=== PATIENT | male | born 1955 | race Caucasian/White ===

== ENCOUNTER 2019-11-27 08:34 | Outpatient (CLI) | payer MEDICARE, SELFPAY ==
--- NOTE | 2019-12-10 15:59 | SLEEP_ITS ---
Basic Nocturnal Polysomnogram DATE OF STUDY: 11/27/2019 ORDERING PHYSICIAN: Gold Oliver DO. REASON FOR THE STUDY: Hypersomnia. HISTORY: This patient is a 64-year-old man, 73 inches tall weighing 255 pounds with a body mass index of 33.6. 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 He rarely snores. He answers in the negative to the majority of questions including having trouble breathing with the cold, waking up gasping for breath at night, witnessed breathing problems reported to him by others, sweating excessively at night, notices heart pounding or beating irregularly at night, falling asleep during the day, falling asleep involuntarily, falling asleep while driving, with physical effort. He denies loss of muscle tone with strong emotion, daytime difficulties due to excessive sleepiness, feeling paralyzed on waking or falling asleep, and he does not have vivid dreamlike scenes upon awakening or falling asleep. He is never afraid to go to sleep. He rarely has nightmares, rarely remembers his dreams. He occasionally has racing thoughts. He denies feeling sad, depressed, or anxious. He rarely has muscular tension. He never notices parts of his body jerking. He does not kick at night. He does not have crawly achy feelings in his legs. He rarely has leg pain at night. He does not have morning jaw pain. He does not grind his teeth. He frequently is bothered by pain during the day and he occasionally is awakened by pain at night, occasionally wakes up feeling stiff in the morning with sore achy muscles, and wakes up with pain in the neck and spine. His work situation is satisfactory. He has tremors. Normal bedtime is between 9 and 10 p.m., falling asleep quickly, waking up during the night to use the bathroom. He wakes in the morning between 5 and 7 a.m. The weekend schedule is the same. He does take naps. A short nap is refreshing. He feels good in the morning, but indicates he has a bit drowsy for 3 hours perhaps. He drinks caffeine. Occasional alcohol. No mention of tobacco. MEDICAL COMORBIDITIES: Hypertension. He takes Neurontin and there is no clear reason why. The patient is a former pipe smoker, quit smoking in November 2016. Medication list is not available. DESCRIPTION OF THE STUDY: On the Winton Sleepiness Scale, the score is 4. This was conducted as a basic nocturnal polysomnogram using the [employer]itt[employer]ch multiple channel system including EOG, EEG, submental EMG, EKG, nasal and oral airflow using thermistors and nasal pressure sensors, chest and abdominal belts, body position data, and pulse oximetry. The study was scored using [facility] guidelines. Duration of the study was 471.5 minutes. Sleep time 264.5 minutes. Sleep efficiency was low at 56.1%. Sleep latency 24.3 minutes. REM latency extremely prolonged, 211 minutes. He had 27 waking awakenings and spent 40.9% of this test awake after sleep onset. This was a significant amount of sleep, 182.7 minutes. Sleep architecture showed 8.2% stage 1 sleep, 36.2% stage 2 sleep, no stage 3 sleep, and 14.8% stage REM. Sleep was fragmented and he had several episodes of wakefulness throughout the study. He had 2 REM cycles. His apnea-hypopnea index was 15. The obstructive index is 14.3. The patient had no supine REM unfortunately. He had 32 obstructive hypopneas in non-supine REM for an index of 29.1. He had 3 mixed apneas and 32 obstructive hypopneas in non-supine non-REM for an index of 10.6. The non-supine index was 15. The lowest desaturation is 81%. The mean saturation is 87.4%. The patient spent 235 minutes below 88% saturation, which was 49.8% of the study. He had 69 desaturations of 4% or greater for an index of 8.8. REM desaturation index was 30.9.
== END 2019-11-27 08:35 | disposition home or self-care (01) ==
LOC: ANHCSM 08:35
PROVIDERS: PCP Internal Medicine; Visit Provider Internal Medicine
DX: G47.10 Hypersomnia, unspecified (principal); G47.33 Obstructive sleep apnea (adult) (pediatric); I10 Essential (primary) hypertension; Z68.33 Body mass index [BMI] 33.0-33.9, adult
CPT/HCPCS: 95810

== ENCOUNTER 2021-10-12 10:05 | Emergency (ER) | payer MEDICARE, SELFPAY ==
--- NOTE | ~2021-10-12 | XR_ITS ---
EXAMINATION: XR chest 2V DATE: 10/12/2021 11:07 INDICATION: Cough and chest congestion TECHNIQUE: PA and lateral views of the chest are obtained. COMPARISON: 12/16/2015 FINDINGS: There is chronic bibasilar atelectasis. No acute airspace opacities are identified. There i s no pleural effusion or pneumothorax. The cardiomediastinal silhouette is normal. There is mild thor acic spondylosis. IMPRESSION: 1. No acute cardiopulmonary abnormality. Reviewed, dictated and finalized at location B. ALLER
[2021-10-12 10:47] VITALS: BP 123/82; PULSE 95; RESP 18; TEMP 36.8; O2SAT 93
--- NOTE | 2021-10-12 11:01 | ED.GENADULT ---
HPI - General Adult General Chief complaint: Upper Respiratory Infection Stated complaint: flu like symptoms Source: patient Mode of arrival: ambulatory Limitations: no limitations History of Present Illness HPI narrative: Patient is a 66-year-old male who presents to the urgent care via POV for evaluation of COVID-like symptoms that have been present for 2 days. Additionally, he reports chills, decreased appetite, lightheadedness, nonproductive, wet cough, and diarrhea. He reports 6 episodes of brown watery diarrhea since onset. Coricidin HBP provides some relief. Nothing worsens symptoms. Denies known exposure to sick contacts. Patient reports he is fully vaccinated against Covid and influenza. He also reports he is received Covid booster. Related Data Allergies Allergy/AdvReac Type Severity Reaction Status Date / Time triprolidine Allergy Severe RASH Verified 10/12/21 11:00 Review of Systems Review of Systems: Denies fever, sweats, poor p.o. intake, LOC, myalgias headaches, rhinorrhea, ear pain, sinus problems, sore throat, drooling, difficulty swallowing, abdominal pain, nausea, vomiting, diarrhea, shortness of breath, wheezing, cyanosis, chest pain, heart palpitations PMFSH Past Medical History Medical History (Updated 10/12/21 @ 11:15 by DONTE Bynum, LM) Benign essential hypertension Chronic pain of both knees Obesity Other and unspecified hyperlipidemia Primary osteoarthritis involving multiple joints Seizures Family History Family History Mother Family history of diabetes mellitus in first degree relative Social History Social History Smoking status: Former smoker Tobacco type: pipe Second hand tobacco smoke exposure: No Smoking end date: 11/10/16 Alcohol intake: never Comments I have reviewed and agree with the patient's past medical, surgical, social, and family hx as documented by the RN. There is no relevant family history pertinent to the presenting complaint. Exam Narrative: GENERAL: Well-appearing, well-nourished, and in no acute distress. HEAD: Normocephalic, atraumatic. No sinus tenderness or facial swelling appreciated. EYES: PERRLA and EOMI. No evidence of erythema, swelling, or drainage. ENT: Bilateral external ears and ear canals normal. Bilateral TMs are normal.No TM perforation. Nares clear, no rhinorrhea or epistaxis. Bilateral turbinates without erythema/ swelling. Mucous membranes moist and pink. Uvula is midline without erythema and swelling. No evidence of petechial rash, cobblestoning, lesions, ulcers, erythema, swelling, exudates, peritonsillar abscess, tenting, or drooling. Breath odor and voice normal. NECK: Supple. No Lymphadenopathy or nuchal rigidity appreciated. CHEST: Bilateral lung saunders are clear to auscultation. No respiratory distress. Moderate wet cough appreciated upon examination. No pleuritic cp upon examination. HEART: Regular rate and rhythm. No murmur, gallop, or rub heard. EXTREMITIES: Normal range of motion. No edema. SKIN: Warm, dry, no rash. NEURO: No focal deficits. Alert and oriented x3. Course Course Level of Care: Express Care Visit Vital Signs Vital signs: Vital Signs Temperature 98.2 F 10/12/21 10:47 Pulse Rate 93 10/12/21 10:47 Respiratory Rate 18 10/12/21 10:47 Blood Pressure 123/82 10/12/21 10:47 Pulse Oximetry 93 10/12/21 10:47 Temperature 98.2 F 10/12/21 10:47 Pulse Rate 93 10/12/21 10:47 Respiratory Rate 18 10/12/21 10:47 Blood Pressure 123/82 10/12/21 10:47 Pulse Oximetry 93 10/12/21 10:47 Medical Decision Making Differential Diagnosis Differential Diagnosis: Allergic rhinitis, ABRS, acute viral sinusitis, strep pharyngitis, nasopharyngitis, bronchitis, pneumonia, AOM, otitis externa, viral URI, influenza, covid-19 Medical Records Medical records
== END 2021-10-12 11:41 | disposition home or self-care (01) ==
PROVIDERS: Emergency Provider Nurse Practitioner Family; PCP Internal Medicine
DX: U07.1 COVID-19 (principal); Z87.891 Personal history of nicotine dependence; I10 Essential (primary) hypertension; E78.5 Hyperlipidemia, unspecified; M19.90 Unspecified osteoarthritis, unspecified site; G40.909 Epilepsy, unspecified, not intractable, without status epilepticus
CPT/HCPCS: 71046; 87426; 99213; C9803; G0463

== ENCOUNTER → 2021-10-24 08:00 | Outpatient (CLI) | payer MEDICARE, SELFPAY ==
[2021-10-24 16:46] LABS: SARS-CoV-2 RNA PCR Positive
== END ==
PROVIDERS: PCP Internal Medicine; Visit Provider Internal Medicine
DX: U07.1 COVID-19 (principal)
CPT/HCPCS: C9803; U0003; U0005

== ENCOUNTER → 2021-10-30 04:22 | Outpatient (CLI) | payer MEDICARE, SELFPAY ==
[2021-10-30 12:06] LABS: Influenza A QL RT-PCR Negative (Negative); Influenza B QL RT-PCR Negative (Negative); SARS-CoV-2 RNA PCR Negative
== END ==
PROVIDERS: PCP Internal Medicine; Visit Provider Internal Medicine
DX: R09.89 Other specified symptoms and signs involving the circulatory and respiratory systems (principal); Z20.822 Contact with and (suspected) exposure to COVID-19
CPT/HCPCS: 87502; C9803; U0003; U0005

== ENCOUNTER 2022-09-01 13:38 | Emergency (ER) | payer MEDICARE, SELFPAY ==
[2022-09-01 14:05] VITALS: BP 140/69; PULSE 98; RESP 20; TEMP 37.6; O2SAT 95
--- NOTE | 2022-09-01 14:15 | ED.URI ---
HPI - URI/Sore Throat General Chief Complaint: Upper Respiratory Infection Stated Complaint: flu like symptoms Time Seen by Provider: 09/01/22 14:16 Source: patient Mode of arrival: ambulatory Limitations: no limitations History of Present Illness HPI Narrative: 67-year-old male presents with complaint of cough, chest congestion, fatigue and body aches for 2 days. States same symptoms as the last time he had COVID. Did a home COVID test this morning that was negative. Denies chest pain and shortness of breath. Reports that he has his COVID vaccine and boosters. Afebrile. All systems reviewed and negative except as noted above. Related Data Allergies Allergy/AdvReac Type Severity Reaction Status Date / Time triprolidine AdvReac Mild RASH Verified 09/01/22 13:58 Review of Systems Review of Systems: CONSTITUTIONAL: Denies fever, chills, or sweats. Reports fatigue. EYES: Denies visual changes, redness, or discharge. ENT: Denies rhinorrhea, congestion, sore throat, or otalgia. CARDIOVASCULAR: Denies chest pain, palpitations, or edema. RESPIRATORY: reports cough. Denies dyspnea. GASTROINTESTINAL: Denies abdominal pain, nausea, vomiting, or diarrhea. GENITOURINARY: Denies dysuria or hematuria. SKIN: Denies rash or itching. MUSCULOSKELETAL: Denies back pain, joint pain . Reports myalgia. NEUROLOGIC: Denies headache, numbness, or weakness. PSYCHIATRIC: Denies anxiety or depression. All other systems reviewed are negative, except as documented in HPI. [facility] Past Medical History Medical History Benign essential hypertension Chronic pain of both knees Obesity Other and unspecified hyperlipidemia Primary osteoarthritis involving multiple joints Seizures Family History Family History Mother Family history of diabetes mellitus in first degree relative Social History Social History Smoking status: Former smoker Tobacco type: pipe Second hand tobacco smoke exposure: No Smoking end date: 11/10/16 Alcohol intake: never Substance use: never Substance use type: does not use Comments At time of signature, agree with nursing past medical, surgical, social and family history. There is no relevant family history pertinent to the presenting complaint. Exam Narrative: GENERAL: This is a well-nourished, well-developed patient, in no apparent distress. HEAD: normocephalic, atraumatic. EYES: PERRL. Sclera clear/white. Vision is grossly intact. EARS: External ears normal, auditory canals clear and without drainage, TMs normal without perforation. Hearing grossly intact. NOSE: External nose normal with no obvious nasal discharge, nares without redness, no rhinorrhea. THROAT: Mucous membranes moist, posterior pharynx clear. NECK: Neck supple, non-tender without lymphadenopathy, masses or thyromegaly. CARDIOVASCULAR: Regular rate and rhythm without murmurs, gallops, or rubs. RESPIRATORY: Clear to auscultation. Breath sounds equal bilaterally. No wheezes, rales, or rhonchi. SKIN: warm, Dry, intact with no suspicious lesions or rash, good texture and turgor. NEURO: awake, alert, and oriented to person, place and time. There were no obvious focal neurologic abnormalities. EXTREMITIES: No joint tenderness, effusion, or edema noted. Course Course Level of Care: Express Care Visit Vital Signs Vital signs: Vital Signs Temperature 37.6 C H 09/01/22 14:05 Pulse Rate 98 09/01/22 14:05 Respiratory Rate 20 09/01/22 14:05 Blood Pressure 140/69 09/01/22 14:05 Pulse Oximetry 95 09/01/22 14:05 Oxygen Delivery Room Air 09/01/22 14:05 Temperature 37.6 C H 09/01/22 14:05 Pulse Rate 98 09/01/22 14:05 Respiratory Rate 20 09/01/22 14:05 Blood Pressure 140/69 09/01/22 14:05 Pulse Oximetry 95 09/01/22 14:05 Oxygen Delivery Room
== END 2022-09-01 14:25 | disposition home or self-care (01) ==
PROVIDERS: Emergency Provider Nurse Practitioner Family; PCP Internal Medicine
DX: U07.1 COVID-19 (principal); I10 Essential (primary) hypertension; Z87.891 Personal history of nicotine dependence
CPT/HCPCS: 87426; 99213; C9803; G0463

== ENCOUNTER 2022-09-24 10:07 | Emergency (ER) | payer MEDICARE, SELFPAY ==
--- NOTE | ~2022-09-24 | XR_ITS ---
EXAMINATION: XR knee LT min 4V DATE: 09/24/2022 11:13 INDICATION: Lateral left knee pain post fall TECHNIQUE: Anteroposterior, oblique and crosstable lateral views of the left knee were obtained COMPARISON: Radiographs dated 04/30/[address] dated 06/13/2015 FINDINGS: Left total knee arthroplasty with patellar resurfacing. There is unchanged subtle degree medial angul ation of the tibia with respect to the axis of the tibial component. Also unchanged is minimal lucenc y at the component cement interface at the lateral side of the tibial component. No fracture or perip rosthetic lucency to suggest loosening. Minimal left knee joint effusion at the suprapatellar pouch. Chronic fatty atrophy of the medial head of the gastrocnemius. IMPRESSION: 1. Left total knee arthroplasty with minimal joint effusion and no acute osseous abnormality. Reviewed, dictated and finalized at location A. RICT DIRECTOR IMPRESSION: 1. Left total knee arthroplasty with minimal joint effusion and no acute osseou s abnormality.
[2022-09-24 10:38] VITALS: BP 120/73; PULSE 87; RESP 20; TEMP 36.4; O2SAT 97
--- NOTE | 2022-09-24 10:39 | ED.LOWEXIN ---
HPI - Extremity Injury (Lower) General Chief Complaint: Extremity Problem,Nontraumatic Stated Complaint: lt knee injury Time Seen by Provider: 09/24/22 10:45 Source: patient Mode of arrival: ambulatory Limitations: no limitations History of Present Illness HPI Narrative: Mr. Lawler is a 67-year-old male patient presenting to the clinic today with complaints of left lateral knee pain that occurred last night when he was getting undressed. He reports that when he was taking his pants off he felt a pop in his knee and had pain over the left lateral knee. He thinks he may have torn his MCL again. States he has had a full arthroplasty and a partial arthroplasty of the left knee in the past. Has lateral knee pain with walking, bending, and extension of his leg. Related Data Home Medications Medication Instructions Recorded Confirmed quinapril 20 mg tablet 20 mg PO DAILY 09/24/22 09/24/22 Allergies Allergy/AdvReac Type Severity Reaction Status Date / Time triprolidine AdvReac Mild RASH Verified 09/24/22 10:41 Review of Systems Review of Systems: Pertinent positives per HPI. Patient denies any fever, chills, rash, headache, visual changes, dizziness, cough, runny nose, sore throat, shortness of breath, chest pain, palpitations, nausea, vomiting, diarrhea, constipation, abdominal pain, or any urinary issues. PMFSH Past Medical History Medical History Benign essential hypertension Brain abscess Chronic pain of both knees Obesity Other and unspecified hyperlipidemia Primary osteoarthritis involving multiple joints Seizures Family History Family History Mother Family history of diabetes mellitus in first degree relative Social History Social History Smoking status: Former smoker Tobacco type: pipe Second hand tobacco smoke exposure: No Smoking end date: 11/10/16 Alcohol intake: never Substance use: never Substance use type: does not use Comments At the time of my signature, I reviewed and agree with the nursing past medical, surgical, social, and family history. There is no relevant family history pertinent to the patient complaint. Exam Narrative: General: Well-developed, well nourished, in no apparent distress Head: Normocephalic, atraumatic. Cardio: Regular rate and rhythm, s1 and s2 normal, no murmur appreciated. Resp: Clear to auscultation bilaterally, no rhonchi, rales, wheezing or rubs. Musculoskeletal: No deformity, vertical healed scarring over the anterior knee, mild swelling when compared to the right knee, tenderness to palpation over the LCL, mild pain with valgus varus testing over the LCL without laxity of the ligament, pain over the LCL with flexion and extension of the left leg, negative anterior and posterior drawer test, grossly normal range of motion, muscle strength strong and equal, peripheral pulse strong, no cyanosis, using crutches to walk Course Course Emergency Course: Portions of this record may have been created with voice recognition software. Level of Care: Express Care Visit Vital Signs Vital signs: Vital Signs Temperature 36.4 C L 09/24/22 10:38 Pulse Rate 87 09/24/22 10:38 Respiratory Rate 20 09/24/22 10:38 Blood Pressure 120/73 09/24/22 10:38 Pulse Oximetry 97 09/24/22 10:38 Oxygen Delivery Room Air 09/24/22 10:38 Temperature 36.4 C L 09/24/22 10:38 Pulse Rate 87 09/24/22 10:38 Respiratory Rate 20 09/24/22 10:38 Blood Pressure 120/73 09/24/22 10:38 Pulse Oximetry 97 09/24/22 10:38 Oxygen Delivery Room Air 09/24/22 10:38 Vital signs reviewed MDM - Extremity Injury (Lower) MDM Narrative Medical decision making narrative: At the time of visit patient is resting comfortably on exam table. X-ray of the left knee was obtained and shows no fr
== END 2022-09-24 11:55 | disposition home or self-care (01) ==
PROVIDERS: Emergency Provider Nurse Practitioner Family; PCP Internal Medicine
DX: M25.462 Effusion, left knee (principal); S83.422A Sprain of lateral collateral ligament of left knee, initial encounter; X58.XXXA Exposure to other specified factors, initial encounter; I10 Essential (primary) hypertension; E66.9 Obesity, unspecified; Z68.29 Body mass index [BMI] 29.0-29.9, adult; E78.49 Other hyperlipidemia; M19.90 Unspecified osteoarthritis, unspecified site; Z87.891 Personal history of nicotine dependence
CPT/HCPCS: 73564; 99213; G0463

== ENCOUNTER 2025-01-21 08:59 | Outpatient (CLI) | payer MEDICARE, SELFPAY ==
--- NOTE | ~2025-01-21 | XR_ITS ---
XR knee LT 3V Ordering provider: Gold Oliver DO History: . M25.561 - Pain in right knee . Comparison: September 24, 2022 FINDINGS: BONES: No acute fracture or dislocation. JOINT SPACES: Total knee arthroplasty. SOFT TISSUES: Normal. IMPRESSION: No acute osseous abnormality left knee. Total knee arthroplasty. Reviewed, dictated and finalized at location A.
--- NOTE | ~2025-01-21 | XR_ITS ---
Left Shoulder Technique: AP and scapular Y views were obtained. Clinical History: Pain Findings: No fracture or dislocation is seen. Osseous alignment is anatomic. The glenohumeral joint d emonstrates moderate to advanced degenerative change. Probable prior distal clavicular resection. Sof t tissues are unremarkable. Impression: Moderate to advanced degenerative change of the glenohumeral joint. Probable prior distal clavicular resection. Reviewed, dictated and finalized at location M. Impression: Moderate to advanced degenerative change of the glenohumeral joint. Probable prior distal clavicular resection.
--- NOTE | ~2025-01-21 | XR_ITS ---
XR knee RT 3V Ordering provider: Gold Oliver DO History: . M25.561 - Pain in right knee, NKI . Comparison: April 30, 2015 FINDINGS: BONES: No acute fracture or dislocation. JOINT SPACES: Slight narrowing of the medial compartment. Chondrocalcinosis. SOFT TISSUES: Normal. IMPRESSION: No acute osseous abnormality right knee. Mild osteoarthritic changes. Chondrocalcinosis. Reviewed, dictated and finalized at location A.
--- OUTSIDE RECORDS SUMMARY | 2025-01-21 09:08 | XMS_ITS | Clinical Summary ---
Author Organization [facility] Address [address] [place] [id number] Care Team Providers Care Nude Model Name Role Phone Unavailable Primary Care Provider Unavailabl e Social History Tobacco Use Types Packs/Day Years Used Date Smoking Tobacco: Never Assessed Sex and Gender Information Value Date Recorded Sex Assigned at Not on file Legal Sex Male 4:31 PM CDT Gender Identity Not on file Sexual Orientation Not on file Plan of Treatment Health Maintenance Due Date Last Done Comments Colorectal Cancer Screening Colonoscopy (10 Years) 1953 Hepatitis C 1971 DTaP, Tdap and Td Vaccines ( 1 - Tdap) 1972 Pneumococcal Vaccine: 50+ Ye ars (1 of 1 - PCV) 2003 Zoster Vaccines (1 of 2) 2003 COVID-19 Vaccine ( - 2023-2 5 season) 2024 RSV Immunization or 60+ Years (1 - 1-dose 75+ series) 2028 Meningococcal B Vaccine Aged Out No l onger eligible based on patient's age to complete this topic Meningococcal Vaccine Aged Out No guanako kimberley eligible based on patient's age to complete this topic RSV Immunizations Under 20 Months Aged Out No longer eligible based on patient's age to complete this topic
--- OUTSIDE RECORDS SUMMARY | 2025-01-21 09:08 | XMS_ITS | Clinical Summary ---
Author Organization [facility] Address [address] [place] [address] Care Team Providers Care Magisterial District Judge Name Role Phone Kenrick Pinto MD Primary Care Provider [phone] Source Comments [facility] Affiliates and Associated Physician Practices is amultiple site organization consisting of ambulatory clinics and hospital sitesin [place], [place], [place] and [place]. This disclosure is being madepursuant to the Care Everywhere program and may not contain all information available regarding this patient. Last updated [email or web address] [email or web address] Social History Tobacco Use Types Packs/Day Years Used Date Smoking Tobacco: Never Assessed Sex and Gender Information Value Date Recorded Sex Assigned at Not on file Legal Sex Male 9:28 AM CHANGE MANAGEMENT CONSULTANT Gender Identity Not on file Sexual Orientation Not on file Last Filed Vital Signs Vital Sign Reading Time Taken Comments Blood Pressure - - Pulse - - Temperature - - Respiratory Rate - - Oxygen Saturation - - Inhaled Oxygen Concentration - - Weight 109.3 kg (241 lb) 10/19/2017 9:40 AM CHANGE MANAGEMENT CONSULTANT Height 188 cm (6' 2 ) 10/19/2017 9:40 AM CHANGE MANAGEMENT CONSULTANT Body Mass Index 30.94 10/19/2017 9:40 AM CHANGE MANAGEMENT CONSULTANT Plan of Treatment Health Maintenance Due Date Last Done Comments COLOGUARD (AGES 45-75) - COL ON CA SCREENING 1955 COLON MONITORING 1953 COLONOSCOPY - COLON CA SCREENING 1953 CT COLONOGRAPHY - COLON CA SCREENING 1953 Colorectal Cancer Screening 1953 FIT - COLON CA SCREENING 1953 FLEX SIG - COLON CA SCREENING 1953 LIPID TESTING 1953 HEPATITIS C SCREENING 02/27/1971 DTAP/TDAP/TD VACCINES (1 - Tdap) 1972 PNEUMOCOCCAL VACCINE 50+ (1 of 1 - PCV) 2003 ZOSTER VACCINE (1 of 2) 2003 COVID-19 VACCINE (1 - 2023-2 5 season) 2024 DEPRESSION SCREENING 09/12/2024 INFLUENZA VACCINE (Season Ended) 2025 Respiratory Syncytial Virus (RSV) Vaccine Pt: or over 60 yrs (1 - 1-dose 75+ series) 2028 HEPATITIS B VACCINE Aged Out No longe r eligible based on patient's age to complete this topic HIB VACCINE Aged Out No longer eligi ble based on patient's age to complete this topic HPV VACCINE Aged Out No longer eligi ble based on patient's age to complete this topic MENINGOCOCCAL (Group B) VACC INE SHARED DECISION-MAKING Aged Out No longer eligibl e based on patient's age to complete this topic MENINGOCOCCAL GROUPS A/C/Y/W VACCINE Aged Out No longer eligible b ased on patient's age to complete this topic Insurance [place] [id number] Care Teams Magisterial District Judge Relationship Specialty [place] [address] [place] [id number] PCP - General Internal Medicine 09/30/17
--- OUTSIDE RECORDS SUMMARY | 2025-01-21 09:08 | XMS_ITS | Clinical Summary ---
Author Organization [facility] Address [address] [place] [address] Phone Care Team Providers Care Long Winder Tender Name Role Phone Kenrick Pinto MD Primary Care Provider + Allergies No known active allergies Medications quinapril (ACCUPRIL) 20 mg tablet Take 20 mg by mouth Daily LATE . Active atorvastatin (LIPITOR) 80 mg tablet Take 80 mg by mouth Daily LATE. Active gabapentin (NEURONTIN) 300 mg capsule Take 300 mg by mouth daily at bedtime . Active phenytoin (DILANTIN) 300 mg Capsule Take 700 mg by mouth daily at bedtime . Active oxyCODONE-aceta minophen (PERCOCET) 5-325 mg tablet Take 1 Tablet by mouth every 4 hours as needed for Pain, Moderate. Max Daily Amount: 6 Tablet 50 Tablet 0 01/26/2016 Active Social History Tobacco Use Types Packs/Day Years Used Date Smoking Tobacco: Every Day Pipe Smokeless Tobacco: Never Alcohol Use Standard Drinks/Week Comments Yes 0 (1 standard drink = 0.6 oz pur e alcohol) rare Sex and Gender Information Value Date Recorded Sex Assigned at Not on file Legal Sex Male 4:43 PM CDT Gender Identity Not on file Sexual Orientation Not on file Last Filed Vital Signs Vital Sign Reading Time Taken Comments Blood Pressure 129/62 01/26/2016 5:10 AM CDT Pulse 89 01/26/2016 5:10 AM CDT Temperature 36.8 C (98.2 F) 01/26/2016 5:10 AM CDT Respiratory Rate 18 01/26/2016 5:10 AM CDT Oxygen Saturation 95% 01/26/2016 5:10 AM CDT Inhaled Oxygen Concentration - - Weight 105.2 kg (232 lb) 01/23/2016 1:02 PM CDT Height 188 cm (6' 2 ) 01/12/2016 9:03 AM CDT Body Mass Index 29.79 01/12/2016 9:03 AM CDT Plan of Treatment Health Maintenance Due Date Last Done Comments DTAP/TDAP/TD VACCINES (1 - Tdap) 1972 PNEUMOCOCCAL VACCINE 50+ YEARS (1 of 2 - PCV) 03/03/19 72 COLORECTAL SCREENING 1998 Colorectal Cancer Screening 1998 FIT-DNA Q 3 years 1998 FIT/FOBT Q 1 year 1998 Flex Sig/CT Colonography Q 5 years 1998 ZOSTER VACCINE (1 of 2) 2003 INFLUENZA VACCINE (#1) 2024 RSV VACCINE (60+ or ) (1 - 1-dose 75+ series) 2028 Medical Devices Implanted Type Area Ict Help Desk Technician Device Identifier Shelf Expiration Date Model / Serial / Lot Insert Tib Sigma Rps [id number] - [id number] Implanted:Qty: 1 on 01/23/2016 by Marc Dudley MD at [facility] Knee Left: Knee [employer] 07/12/2018 [id number] / / [id number] Description:This Depuy krista ion knee components was processed on requisition,[id number]. Left Knee Mesh Hernia Explanted Type Area Ict Help Desk Technician Device Identifier Shelf Expiration Date Model / Serial / Lot Poly Insert Explanted:Qty: 1 on 01/23/2016 by Marc Dudley MD at [facility] Left: Knee [employer] Insurance [facility] [id number] Advance Directives For more information, please contact: [phone] * Full Code (Latest Code Status on File) Date Activated Date Inactivated Comments 01/23/2016 6:23 PM 01/26/2016 4:44 PM * Full Code Date Activated Date Inactivated Comments 01/23/2016 1:03 PM 01/23/2016 6:23 PM Care Teams Long Winder Tender Relationship Specialty Start Date End Date Kenrick Pinto MD [address] [place] [id number] PCP - General Internal Medicine 01/12/16
--- OUTSIDE RECORDS SUMMARY | 2025-01-21 09:09 | XMS_ITS | Clinical Summary ---
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 Gender Identity Not on file Sexual Orientation Not on file Plan of Treatment Health Maintenance Due Date Last Done Comments Hepatitis C Virus (HCV) Screening 1955 TdaP Immunization 1955 Cologuard 2003 Immunochemical Fecal Occult Blood 2003 Pneumococcal Immunization (5 0+ years) (1 of 1 - PCV) 2003 Zoster Immunization (1 of 2) 2003 Colonoscopy 11/06/2021 11/06/2018 Colorectal Cancer Screening 11/06/2021 Influenza Immunization (#1) 2024 SARS-COV-2 Immunization ( season) 2024 Respiratory Syncytial Virus (RSV) Immunization (Adult) (1 - 1-dose 75+ series) 2028 11/06/2018 Hepatitis B Immunization Aged Out No longer eligible based on patient's age to complete this topic Meningococcal Immunization (ACWY) Aged Out No longer eligible based on patient's age to complete this topic Rotavirus Immunization Aged Out No lo nger eligible based on patient's age to complete this topic Procedures Procedure Name Priority Date/Time Associated Diagnosis Comments COLONOSCOPY Routine 11/06/2018 from Last 3 Months or Most Recently Relevant to Health Maintenance Results * COLONOSCOPY (11/06/2018) Savage Shell DO PROCEDURE/MINOR SURGICAL ORDERA BLES Final Result from Last 3 Months or Most Recently Relevant to Health Maintenance Insurance on file Care Teams Dural Mechanic Relationship Specialty Start Date End Date Kenrick Pinto MD PCP - General Internal Medicine 11/08/18
== END 2025-01-21 09:00 | disposition home or self-care (01) ==
PROVIDERS: PCP Internal Medicine; Visit Provider Internal Medicine
DX: M19.012 Primary osteoarthritis, left shoulder (principal); M17.11 Unilateral primary osteoarthritis, right knee; M11.261 Other chondrocalcinosis, right knee; Z96.652 Presence of left artificial knee joint
CPT/HCPCS: 73030; 73562

== ENCOUNTER 2025-02-06 09:50 | Outpatient (CLI) | payer MEDICARE, SELFPAY ==
--- NOTE | ~2025-02-06 | XR_ITS ---
Left Hand Technique: PA, oblique, and lateral views were obtained. Clinical History: Pain Findings: No acute fracture or dislocation is seen. Osseous alignment is anatomic. There is severe de generative change of the first CMC joint. Soft tissues are unremarkable. Impression: Severe degenerative change of the first CMC joint. Reviewed, dictated and finalized at [facility]. Impression: Severe degenerative change of the first CMC joint.
--- OUTSIDE RECORDS SUMMARY | 2025-02-06 09:54 | XMS_ITS | Clinical Summary ---
Author Organization [facility] Address [address] [place] [address] Care Team Providers Care Wedger Name Role Phone Kenrick Pinto MD Primary Care Provider [phone] Source Comments [facility] Affiliates and Associated Physician Practices is amultiple site organization consisting of ambulatory clinics and hospital sitesin [place], [place], [place] and [place]. This disclosure is being madepursuant to the Care Everywhere program and may not contain all information available regarding this patient. 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 Gender Identity Not on file Sexual Orientation Not on file Last Filed Vital Signs Vital Sign Reading Time Taken Comments Blood Pressure - - Pulse - - Temperature - - Respiratory Rate - - Oxygen Saturation - - Inhaled Oxygen Concentration - - Weight 109.3 kg (241 lb) 10/19/2017 9:40 AM FORMING PROCESS WORKER Height 188 cm (6' 2) 10/19/2017 9:40 AM FORMING PROCESS WORKER Body Mass Index 30.94 10/19/2017 9:40 AM FORMING PROCESS WORKER Plan of Treatment Health Maintenance Due Date [...] patient's age to complete this topic Insurance [place] [id number] Care Teams Wedger Relationship Specialty [place] [address] [place] [phone] PCP - General Internal Medicine 09/30/17
--- OUTSIDE RECORDS SUMMARY | 2025-02-06 09:54 | XMS_ITS | Continuity of Care Document ---
Author Organization [facility] Address [address] [place] [address] Phone Care Team Providers Care Property Condition Assessor Name Role Phone Unavailable Unavailable Unavailable Procedures Procedure Date Office/outpatient visit[place] [place] Postop followup visit Postop followup visit Postop followup visit Arthroscopic Rotator Cuff Repair 2007 Arthscpy shldr decompression Office[facility]patient visit,[facility] [place] X-ray exam of shoulder, complete 2007 Advance Directives Directive Yes / No Effective Date File Name No Information Encounters Encounter Description Practice Location Reason(s) For Visit Diagnoses Date Provider Providers Copied on Encounter Office/outpat ient visit,[place], [facility], [address], [place], [place], [address], [place] tel:[phone] No Information No Information Referring Provider: Man Bailey, [address] [place] [address], [address]. tel:[phone] [facility], [address], [place], [place], [address], [place] tel:[phone] [employer] No Information No Information Referring Provider: Man Bailey, [facility] [facility] [address], [place], [address]. tel:[phone] [facility], [address], [place], [place], [address], tel:[phone] No Information 8 No Information Referring Provider: Man Bailey, [address] [facility] [address], [place], [address]. tel:[phone] [facility], [address] [facility] [address], [place], [place], [address], tel:[phone] [facility] No Information 8 No Information Referring Provider: Man Bailey, [address] [facility] [address], [place], [address]. tel:[phone] [facility], [address] [facility] [address], [place], [place], [address], tel:[phone] [facility] No Information 8 No Information Referring Provider: Man Bailey, [address] [facility] [address], [place], [address]. tel:[phone] Office/outpat ient visit,[facility], [address] [facility] [address], [place], [place], [address], tel:[phone] [facility] No Information 8 No Information Referring Provider: Angel Rucker, [address], [place], [address]. tel:[phone] Family History Family Member Type Diagnosis Age At Onset No Information Payers Payer name Insurance type Covered alliance party ID Authoriza tinancy(s) [facility] [id number] Social History Type Description Quantity Date Captured Comments Sex Male Smoking Status No Information Chief Complaint And Reason For Visit No Information Reason For Referral Reason For Referral No Information History Of Present Illness Encounter Date Complaint History Of Prese nt Illness No Information Functional Status Date Functional Assessmen t No Information Instructions Date Instruction Additional Infor mation No Information Assessments Type Assessment Date No Information Patient Care Teams Name Effective Dates (start - stop) Status Members No Information
--- OUTSIDE RECORDS SUMMARY | 2025-02-06 09:54 | XMS_ITS | Clinical Summary ---
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
--- OUTSIDE RECORDS SUMMARY | 2025-02-06 09:54 | XMS_ITS | Continuity of Care Document ---
Author Organization [facility] Address [address] [place] [address] Phone Care Team Providers Care College Director Name Role Phone Marc Dudley MD Unavailable Unavailable Allergies, Adverse Reactions, Alerts Substance Reaction Status Criticality Sulfa (Sulfonamide Antibiotics) Unknown Active No Information Medications Medication Instructions Dosage Effective Dates (start - stop) Status Comments NEURONTIN (unknown strength) Not Available - Active LIPITOR (unknown strength) Not Available - Active VICODIN (unknown strength) Not Available - Active ALEVE (unknown strength) Not Available - Active ACCUPRIL (unknown strength) Not Available - Active DILANTIN (unknown strength) Not Available - Active Procedures Procedure Date OFFICE/OUTPATIENT VISIT EST POSTOP FOLLOW-UP VISIT OFFICE/OUTPATIENT VISIT EST OFFICE/OUTPATIENT VISIT EST OFFICE/OUTPATIENT VISIT EST POSTOP FOLLOW-UP VISIT OFFICE/OUTPATIENT VISIT EST POSTOP FOLLOW-UP VISIT OFFICE/OUTPATIENT VISIT EST OFFICE/OUTPATIENT VISIT EST POSTOP FOLLOW-UP VISIT POSTOP FOLLOW-UP VISIT OFFICE/OUTPATIENT VISIT EST OFFICE/OUTPATIENT VISIT EST POSTOP FOLLOW-UP VISIT POSTOP FOLLOW-UP VISIT OFFICE/OUTPATIENT VISIT EST OFFICE/OUTPATIENT VISIT EST OFFICE/OUTPATIENT VISIT NEW Advance Directives Directive Yes / No Effective Date File Name No Information Encounters Encounter Description Practice Location Reason(s) For Visit Diagnoses Date Provider Providers Copied on Encounter [facility], [address] [address], [place], [address], [place] tel:[phone] [facility] No Information 8 Octavia Tran. [address] [place], [place], [address]. tel:[phone] OFFICE/OUTPA TIENT VISIT EST [facility], [address] [address], [place], [address], [place] tel:[phone] [facility] Primary osteoarthriti s of right kneeInstabili ty of left knee joint 7 Octavia Tran. [address] [place], [place], [address]. tel:[phone] [facility], [address] [place] [address], [address], [place] tel:[phone] [facility] Body mass index (BMI) 32.0-32.9, adultPrimary osteoarthriti s of right knee 7 Danette Gould. [address] [address], [place], [place], [address]. tel:[phone] OFFICE/OUTPA TIENT VISIT EST [facility], [address] [address], [place], [address], [place] tel:[phone] [facility] Old complex tear of medial meniscus of right kneeStatus post revision of total replacement of left knee 7 Danette Gould. [address] [facility] [address], [place], [place], [address]. tel:[phone] OFFICE/OUTPA TIENT VISIT EST [facility], [address] [address], [place], [address], [place] tel:[phone] [facility] S/P Lt shoulder scope (chief complaint) Status post arthroscopy of shoulder 6 Shana Acosta. [address], [place], [place], [address]. tel:[phone] OFFICE/OUTPA TIENT VISIT EST [facility], [address] [facility] [address], [place], [address], [place] tel:[phone] [facility] Old complex tear of medial meniscus of right knee 6 Octavia Tran. [address] [place], [place], [address]. tel:[phone] [facility], [address] [facility] [address], [place], [address], [place] tel:[phone] [facility] Status post arthroscopy of shoulder 6 Shana Acosta. [address], [place], [place], [address]. tel:[phone] OFFICE/OUTPA TIENT VISIT [facility], [address] [address], [place], [address], [place] tel:[phone] [facility] Status post revision of total replacement of left kneePrimary osteoarthriti s of right knee 6 Octavia Tran. [address] [place], [place], [address]. tel:[phone] [facility], [address] [facility] [address], [place], [address], [place] tel:[phone] [facility] Status post arthroscopy of shoulder 6 Shana Acosta. [address], [place], [place], [address]. tel:[phone] OFFICE/OUTPA TIENT VISIT [facility], [address] [facility] [address], [place], [address], [place] tel:[phone] [facility] Status post revision of total replacement of left knee 6 Danette Gould. [address] [facility], [place], [place], [address]. tel:[phone] OFFICE/OUTPA TIENT VISIT [facility], [address] [facility] [address], [place], [address], [place] tel:[phone] [facility] Incomplete tear of left rotator cuffLeft shoulder tendonitis 6 Shana Acosta. [address], [place], [place], [address]. tel:[phone] [facility], [address] [facility] [address], [place], [address], [place] tel:[phone] [facility] Loosening of knee joint prosthesis, initial encounter 6 Octavia Tran. [address] [facility], [place], [place], [address]. tel:[phone] [facility], [address] [place] [address] [address], [place], [address], [place] tel:[phone] [facility] Status post revision of total replacement of left knee 6 Danette Gould. [address] [facility] [address], [place], [place], [address]. tel:[phone] [facility], [address] [place] [address] [address], [place], [address], [place] tel:[phone] [facility] Status post revision of total replacement of left knee 6 Danette Gould. [address] [facility] [address], [place], [place], [address]. tel:[phone] OFFICE/OUTPA TIENT VISIT EST [facility], [address] [place] [address] [address], [place], [address], [place] tel:[phone] [facility] Follow Up of L shldr (chief complaint) Left shoulder tendonitisInc omplete tear of left rotator cuff 6 Stefan Dangelo. [address], [place], [place], [address]. tel:[phone] [facility], [address] [place] [address] [address], [place], [address], [place] tel:[phone] [facility] Instability of internal left knee prosthesis, subsequent encounter 7 6 Octavia Tran. [address] [place], [place], [address]. tel:[phone] OFFICE/OUTPA TIENT VISIT EST [facility], [address], [address], [place] tel:[phone] [facility] Instability of internal left knee prosthesis, subsequent encounter 7 6 Octavia Tran. [address] [place], [place], [address]. tel:[phone] [facility], [address] [place] [address], [address], [place] tel:[phone] [facility] Follow Up of R knee- Orthovisc #3 (chief complaint) Primary osteoarthriti s of right knee 7 6 Ernie Montemayor. [address] [place] [address] [address] [facility], [place], [place], [address]. tel:[phone] [facility], [address] [place] [address], [address], [place] tel:[phone] [facility] Follow Up of R knee-Ortho visc #2 (chief complaint) Primary osteoarthriti s of right knee Nov- 0- 6 Ernie Montemayor. [address] [place] [address], [id number]. tel:[phone] OFFICE/OUTPA TIENT VISIT EST [facility], [address] [place] [address], [address], [place] tel:[phone] [facility] Body mass index (BMI) 32.0-32.9, adultLeft shoulder tendonitis 0 8- 6 Shakir Taylor. [address] [facility] [address] [facility], [place], [place], [address]. tel:[phone] OFFICE/OUTPA TIENT VISIT EST [facility], [address] [place] [address], [address], [place] tel:[phone] [facility] Follow Up of L knee,shldr (chief complaint) Body mass index (BMI) 32.0-32.9, adultPrimary osteoarthriti s of right knee 6 Ernie Montemayor. [address] [facility] [address], [place], [place], [address]. tel:[phone] OFFICE/OUTPA TIENT VISIT [facility], [address] [place], [place] [address], [place], [address], tel:[phone] [facility] KNEE AND SHOULDER PAIN (chief complaint) Body mass index (BMI) 32.0-32.9, adultBicipita l tendonitis of left shoulderOther infective (teno)synovit is, left knee 6 Ernie Montemayor. [address] [facility] [address], [place], [place], [address]. tel:[phone] Family History Family Member Type Diagnosis Age At Onset Sister Problem (finding) Alive and well Immunizations Vaccine Date Status Comments Pneumo (2 yrs or older)(PPV) administered Source: Other Provider Payers Payer name Insurance type Covered green party ID [place] coburnnancy(s) [employer] Medicare Complete HMO-POS [id number] Social History Type Description Quantity Date Captured Comments Alcohol Use Details Unknown Caffeine Use Details Unknown Tobacco Use Status Smoking Status No Information Sex Male Chief Complaint And Reason For Visit No Information Reason For Referral Reason For Referral No Information Plan Of Treatment Date Type Action Status Goal Tobacco cessation counseling completed Referral Ordered: Synvisc or Synvisc-One RT knee ordered Referral Ordered: RADEX JOSE COMPL 4/MORE VIEWS RT ordered Referral Ordered: Synvisc or Synvisc-One ordered Referral Ordered: MRI ANY JT LXTR C-MATRL Appointment date/timeframe: 07/17/2016 ordered Referral Ordered: RADEX JOSE 1/2 VIEWS LT ordered Referral Ordered: MRI ANY JT UXTR C-MATRL LT shoulder Appointment date/timeframe: 11/25/2015 ordered Referral Ordered: RADEX KAROLINA COMPL MINIMUM 2 VIEWS LT ordered Referral Ordered: RADEX KNE COMPL 4/MORE VIEWS LT ordered History Of Present Illness Encounter Date Complaint History Of Prese nt Illness S/P Lt shoulder scope Follow Up of L shldr Follow Up of R knee- Orthovisc # 3 Follow Up of R knee-Orthovisc #2 Follow Up of L knee,shldr KNEE AND SHOULDER PAIN Functional Status Date Functional Assessmen t No Information Instructions Date Instruction Additional Infor mation Avoid prolonged bed rest Related to Instability of left knee joint Use of assistive devices as need ed Related to Instability of left knee joint Ice or heat for comfort Related to Instability of left knee joint home exercise program Related to Primary osteoarthritis of right knee Take medication as directed. Rel ated to Instability of left knee joint Activity as tolerated. Related t o Instability of left knee joint Ice as tolerated Related to Inst ability of left knee joint activity as tolerated Related to Primary osteoarthritis of right knee apply heating pad or ice as tolerated Related to Primary osteoarthritis of right knee elevate higher than your heart R elated to Primary osteoarthritis of right knee immobilize if directed Related t o Primary osteoarthritis of right knee Fall risk home exerc ise program handout provided Giving encouragement to exercise Related to Body mass index (BMI) 32.0-32.9, adult activity as tolerated Related to Primary osteoarthritis of right knee increase activity as instructed Related to Status post revision of total replacement of left knee Elevate extremity above heart. R elated to Incomplete tear of left rotator cuff Apply ice as tolerated. Related to Incomplete tear of left rotator cuff Apply ice as tolerated. Related to Incomplete tear of left rotator cuff Immobilize as directed. Related to Incomplete tear of left rotator cuff Elevate extremity above heart. R elated to Incomplete tear of left rotator cuff activity as tolerated Related to Primary osteoarthritis of right knee activity as tolerated Related to Primary osteoarthritis of right knee apply heating pad or ice as tolerated Related to Primary osteoarthritis of right knee immobilize if directed Related t o Primary osteoarthritis of right knee elevate higher than your heart R elated to Primary osteoarthritis of right knee Giving encouragement to exercise Related to Body mass index (BMI) 32.0-32.9, adult Elevate extremity above heart. R elated to Left shoulder tendonitis Immobilize as directed. Related to Left shoulder tendonitis Apply ice as tolerated. Related to Left shoulder tendonitis activity as tolerated Related to Primary osteoarthritis of right knee apply heating pad or ice as tolerated Related to Primary osteoarthritis of right knee elevate higher than your heart R elated to Primary osteoarthritis of right knee immobilize if directed Related t o Primary osteoarthritis of right knee Giving encouragement to exercise Related to Body mass index (BMI) 32.0-32.9, adult Giving encouragement to exercise Related to Body mass index (BMI) 32.0-32.9, adult Take medication as directed. Rel ated to Bicipital tendonitis of left shoulder Apply ice as tolerated. Related to Bicipital tendonitis of left shoulder Immobilize as directed. Related to Bicipital tendonitis of left shoulder Elevate extremity above heart. R elated to Bicipital tendonitis of left shoulder elevate higher than your heart R elated to Synovitis of knee immobilize if directed Related t o Synovitis of knee apply heating pad or ice as tolerated Related to Synovitis of knee activity as tolerated Related to Synovitis of knee Assessments Type Assessment Date No Information Patient Care Teams Name Effective Dates (start - stop) Status Members No Information
--- OUTSIDE RECORDS SUMMARY | 2025-02-06 09:54 | XMS_ITS | Clinical Summary ---
Author Organization [facility] Address [address] [place] [address] Phone Care Team Providers Care Steam Engineer Name Role Phone Kenrick Pinto MD Primary [...] 1:02 PM CDT Height 188 cm (6' 2) 01/12/2016 9:03 AM CDT Body Mass Index [...] series) 2028 Medical Devices Implanted Type Area Principal Software Architect Device Identifier Shelf Expiration Date Model / Serial / Lot Insert Tib Sigma Rps [id number] [id number] - [id number] Implanted:Qty: 1 on 01/23/2016 by Marc Dudley MD at [facility] Knee Left: Knee [employer] 07/12/2018 [id number] / / [id number] Description:This Dep[employer] krista ion knee components was processed on requisition,[id number]. Left Knee Mesh Hernia Explanted Type Area Principal Software Architect Device Identifier Shelf Expiration Date Model / Serial / Lot Poly Insert Explanted:Qty: 1 on 01/23/2016 by Marc Dudley MD at [facility] Left: Knee [employer] Insurance [facility] [id number] Advance Directives For more information, please contact: [phone] * Full Code (Latest Code Status on File) Date Activated Date Inactivated Comments 01/23/2016 6:23 PM 01/26/2016 4:44 PM * Full Code Date Activated Date Inactivated Comments 01/23/2016 1:03 PM 01/23/2016 6:23 PM Care Teams Steam Engineer Relationship Specialty Start Date End Date Kenrick Pinto MD [address] [place] [id number] PCP - General Internal Medicine 01/12/16
== END 2025-02-06 09:51 | disposition home or self-care (01) ==
PROVIDERS: PCP Internal Medicine; Visit Provider Internal Medicine
DX: M18.12 Unilateral primary osteoarthritis of first carpometacarpal joint, left hand (principal)
CPT/HCPCS: 73130